=== PATIENT | male | born 1985 | race Two or more races ===

== ENCOUNTER 2017-10-25 14:56 | Emergency (ER) | payer SELFPAY ==
[~2017-10-25] VITALS: Ht 172.7 cm; Wt 77.1 kg
[2017-10-25 15:03] VITALS: BP 160/100
[2017-10-25 15:21] LABS: BASOPHILS % (AUTO) 0.7 % (0.0-2.0); EOSINOPHILS % (AUTO) 0.2 % (0.0-3.0); HEMATOCRIT 34.9 % (42.0-52.0); HEMOGLOBIN 11.2 G/DL (14.2-18.0); LYMPHOCYTES % (AUTO) 12.8 % (20.0-45.0); MEAN CORPUSCULAR VOLUME 82 FL (80-99); MONOCYTES % (AUTO) 3.2 % (1.0-10.0); PLATELET COUNT 120 K/UL (150-450); RED BLOOD COUNT 4.28 M/UL (4.70-6.10); RED CELL DISTRIBUTION WIDTH 18.9 % (11.6-14.8); WHITE BLOOD COUNT 7.8 K/UL (4.8-10.8)
[2017-10-25 15:28] LABS: ANION GAP 18 mmol/L (5-15); BLOOD UREA NITROGEN 6 mg/dL (7-18); CALCIUM 8.4 MG/DL (8.5-10.1); CARBON DIOXIDE 22 MMOL/L (21-32); CHLORIDE 94 MMOL/L (98-107); CREATININE 0.5 MG/DL (0.55-1.30); POTASSIUM 3.8 MMOL/L (3.5-5.1); SODIUM 133 MMOL/L (136-145)
[2017-10-25 15:38] LABS: ALANINE AMINOTRANSFERASE 213 U/L (12-78); ALBUMIN 3.6 G/DL (3.4-5.0); ALBUMIN/GLOBULIN RATIO 0.8 (1.0-2.7); ALKALINE PHOSPHATASE 334 U/L (46-116); ASPARTATE AMINO TRANSFERASE 461 U/L (15-37); BILIRUBIN,TOTAL 1.7 MG/DL (0.2-1.0)
[2017-10-25 15:42] LABS: BILIRUBIN,DIRECT 0.3 MG/DL (0.0-0.3)
[2017-10-25 16:12] LABS: APPEARANCE,URINE CLEAR; BILIRUBIN, URINE NEGATIVE (NEGATIVE); COLOR,URINE BROWN; GLUCOSE, URINE (UA) 4+ (NEGATIVE); KETONES,URINE 4+ (NEGATIVE); LEUKOCYTE ESTERASE ,URINE 1+ (NEGATIVE); NITRITE,URINE NEGATIVE (NEGATIVE); PH,URINE 7 (4.5-8.0); PROTEIN,URINE 3+ (NEGATIVE); UROBILINOGEN,URINE 4 MG/DL (0.0-1.0)
[2017-10-25] MEDS ORDERED: Capsaicin 0.075% Cream TOPIC ONE (16:30)
[2017-10-25] MEDS ORDERED: Ketorolac 30mg Inj IV ONE (16:30)
[2017-10-25] MEDS ORDERED: Metoclopramide 10mg/2ml Inj IVP ONE (16:30)
[2017-10-25 17:21] VITALS: BP 130/83
--- NOTE | 2017-10-25 17:26 | Diagnostic Imaging Report ---
Indication: Headache Technique: Continuous helical CT scanning of the head was performed without intravenous contrast material. Axial and coronal 5 mm sections were generated. Radiation dose was minimized using automated exposure control Dose: Total Dose Length Product - DLP 1369.[address] Dose Index - CTDIvol(s) 70.38 mGy. Comparison: none Findings: The ventricular system is normal in size and configuration. There is no shift of midline structures. No abnormal extra-axial fluid collections are noted. There is no evidence of intracerebral bleeding. No other abnormal high or low density areas are noted within the brain. Questionable tiny right high parietal scalp hematoma. Intact calvarium. Normal sena-white differentiation. Visualized orbits and sinuses are unremarkable Impression: Normal CT scan of the head without contrast material. The CT scanner at [facility] is accredited by the [employer] and the scans are performed using protocols designed to limit radiation exposure to as low as reasonably achievable to attain images of sufficient resolution adequate for diagnostic evaluation.
--- NOTE | 2017-10-25 17:28 | Emergency Room Report ---
History of Present Illness General Chief Complaint: Nausea, Vomiting, and Diarrhea Source: Patient, EMS Present Illness HPI This patient is a homeless male. He has a history of alcohol abuse. He states that he drinks a bottle of vodka a day. He states that for the past 3 days he has had recurrent vomiting and the "pancreas" pain. He also has a headache chest pain. He states that this happens often. He states he feels that his "pancreas" is hurting. He does have a history of pancreatitis. He has no other complaints. Allergies: Coded Allergies: No Known Allergies (Unverified , 10/25/17) Patient History Past Medical History: see triage record, DM, HTN, other - ETOH abuse, pancreatitis Social History: Reports: alcohol use - Heavy; Denies: smoking, drug use Reviewed Nursing Documentation: PMH: Agreed; PSxH: Agreed Nursing Documentation-PMH Hx Cardiac Problems: No - PANCREATITIS Hx Hypertension: Yes Hx Diabetes: Yes Review of Systems All Other Systems: negative except mentioned in HPI Physical Exam Vital Signs Date Time Temp Pulse Resp B/P (MAP) Pulse Ox O2 Delivery O2 Flow Rate FiO2 10/25/17 14:36 98.5 70 16 160/100 99 Room Air 98.4 Sp02 EP Interpretation: reviewed, normal General Appearance: no apparent distress, alert, GCS 15, non-toxic Head: normocephalic, atraumatic Eyes: bilateral eye normal inspection, bilateral eye PERRL ENT: hearing grossly normal, normal pharynx, no angioedema, normal voice Neck: full range of motion, supple/symm/no masses Respiratory: chest non-tender, lungs clear, normal breath sounds, no respiratory distress, no retraction, no accessory muscle use, speaking full sentences Cardiovascular #1: regular rate, rhythm, no edema Gastrointestinal: normal bowel sounds, soft, non-distended, no guarding, no rebound, tenderness Rectal: deferred Genitourinary: no CVA tenderness Musculoskeletal: back normal, gait/station normal, normal range of motion, non- tender Neurologic: alert, oriented x3, responsive, motor strength/tone normal, sensory intact, speech normal Psychiatric: judgement/insight normal, memory normal, mood/affect normal, no suicidal/homicidal ideation Skin: normal color, no rash, warm/dry, well hydrated Medical Decision Making Diagnostic Impression: Primary Impression: Nausea, vomiting, and diarrhea Additional Impressions: Alcoholic hepatitis ETOH abuse ER Course This patient has nausea, vomiting, diarrhea and epigastric pain. Likely this patient does have pancreatitis, although, the patient's lipase is not elevated. The patient has a history of pancreatitis and may have seronegative pancreatitis given the long history of heavy alcohol abuse. He also has laboratory findings consistent with alcoholic hepatitis. He may have cirrhosis. He also had a headache and given the ongoing vomiting, I felt I should obtain a CT of the head. This showed no acute findings. He was given aggressive IV fluids, pain and nausea medication. The patient had no further vomiting in the ED. He was instructed on the dangers of ETOH abuse and dependence and given the local resources for ETOH rehab and the local homeless shelters. Laboratory Tests Test 10/25/17 15:05 10/25/17 15:39 White Blood Count 7.8 K/UL (4.8-10.8) Red Blood Count 4.28 M/UL (4.70-6.10) L Hemoglobin 11.2 G/DL (14.2-18.0) L Hematocrit 34.9 % (42.0-52.0) L Mean Corpuscular Volume 82 FL (80-99) Mean Corpuscular Hemoglobin 26.2 PG (27.0-31.0) L Mean Corpuscular Hemoglobin Concent 32.1 G/DL (32.0-36.0) Red Cell Distribution Width 18.9 % (11.6-14.8) H Platelet Count 120 K/UL (150-450) L Mean Platelet Volume 10.2 FL (6.5-10.1) H Neutrophils (%) (Auto) 83.0 % (45.0-75.0) H Lymphocytes (%) (Auto) 12.8 % (20.0-45.0) L Monocytes (%) (Auto) 3.2 % (1.0-10.0) Eosinophils (%) (Auto) 0.2 % (0.0-3.0) Basophils (%) (Auto) 0.7 % (0.0-2.0) Sodium Level 133 MMOL/L (136-145) L Potassium Level 3.8 MMOL/L (3.5-5.1) Chloride Level 94 MMOL/L (98-107) L Carbon Dioxide Level 22 MMOL/L (21-32) Anion Gap 18 mmol/L (5-15) H Blood Urea Nitrogen 6 mg/dL (7-18) L Creatinine 0.5 MG/DL (0.55-1.30) L Estimate Glomerular Filtration Rate > 60 mL/min (>60) Glucose Level 203 MG/DL (74-106) H Calcium Level 8.4 MG/DL (8.5-10.1) L Total Bilirubin 1.7 MG/DL (0.2-1.0) H Direct Bilirubin 0.3 MG/DL (0.0-0.3) Aspartate Amino Transferase (AST) 461 U/L (15-37) H Alanine Aminotransferase (ALT) 213 U/L (12-78) H Alkaline Phosphatase 334 U/L (46-116) H Total Protein 8.4 G/DL (6.4-8.2) H Albumin 3.6 G/DL (3.4-5.0) Globulin 4.8 g/dL Albumin/Globulin Ratio 0.8 (1.0-2.7) L Lipase 297 U/L (73-393) Serum Alcohol 90 mg/dL Urine Color Brown Urine Appearance Clear Urine pH 7 (4.5-8.0) Urine Specific Kendrick 1.015 (1.005-1.035) Urine Protein 3+ (NEGATIVE) H Urine Glucose (UA) 4+ (NEGATIVE) H Urine Ketones 4+ (NEGATIVE) H Urine Occult Blood 1+ (NEGATIVE) H Urine Nitrite Negative (NEGATIVE) Urine Bilirubin Negative (NEGATIVE) Urine Urobilinogen 4 MG/DL (0.0-1.0) H Urine Leukocyte Esterase 1+ (NEGATIVE) H Urine RBC 0-2 /HPF (0 - 0) H Urine WBC 2-4 /HPF (0 - 0) Urine Squamous Epithelial Cells None /LPF (NONE/OCC) Urine Amorphous Sediment Few /LPF (NONE) H Urine Bacteria Few /HPF (NONE) Urine Mucus Few /LPF (NONE/OCC) H Urine Opiates Screen Negative (NEGATIVE) Urine Barbiturates Screen Negative (NEGATIVE) Phencyclidine (PCP) Screen Negative (NEGATIVE) Urine Amphetamines Screen Negative (NEGATIVE) Urine Benzodiazepines Screen Negative (NEGATIVE) Urine Cocaine Screen Negative (NEGATIVE) Urine Marijuana (THC) Screen Negative (NEGATIVE) CT/MRI/US Diagnostic Results CT/MRI/US Diagnostic Results : Imaging Test Ordered: CT head Impression No acute findings. See official report. Last Vital Signs Date Time Temp Pulse Resp B/P (MAP) Pulse Ox O2 Delivery O2 Flow Rate FiO2 10/25/17 16:42 98.4 10/25/17 15:03 78 16 160/100 99 Room Air Disposition: HOME, SELF-CARE Condition: Improved Referrals: NOT CHOSEN IPA/,REFERRING (PCP) Ariana Meza DO Oct 25, 2017 17:28
[2017-10-25 18:30] VITALS: BP 130/83
== END 2017-10-25 18:30 | disposition home or self-care (01) ==
LOC: EDBD 14:56 → EMR 15:50
DX: R11.2 Nausea with vomiting, unspecified (principal); R19.7 Diarrhea, unspecified; K70.10 Alcoholic hepatitis without ascites; F10.10 Alcohol abuse, uncomplicated; I10 Essential (primary) hypertension; E11.9 Type 2 diabetes mellitus without complications; R51 Headache
CPT/HCPCS: 36415; 70450; 80053; 80307; 81003; 82248; 83690; 85025; 96361; 96374; 96375; 99284; G0480; J1885; J2405; J2765; 80329